=== PATIENT | female | born 1950 | race Caucasian/White ===

== ENCOUNTER 2017-10-14 16:46 | Emergency (ER) | payer MEDICARE, MEDICAID ==
--- NOTE | 2017-10-14 19:05 | ED Physician Chart ---
ED Chief Complaint/HPI - Patient Information Allergies:: Allergies Allergy/AdvReac Type Severity Reaction Status Date / Time No Known Allergies Allergy Verified 10/14/17 16:59 Vitals:: Vital Signs - 8 hr 10/14/1718 10/14/17 16:59 20:09 21:48 Temp 97.8 F 98.3 F HR 67 75 73 RR 18 18 16 BP 143/62 167/81 149/49 O2 Sat % 97 97 99 <Vitaliy Beal - Last Filed: 10/14/17 21:52> - Patient Information Date Seen:: 10/14/17 History of Present Illness:: PT IS A FEMALE WHO HAS ABD AND PEPVIC PAIN FOR INDETERMINANT PERIOD OF TIME. PT IS NONVERBAL AND NON-COMUNITIVE.Can't get my HPICareer view systems Allergies:: Allergies Allergy/AdvReac Type Severity Reaction Status Date / Time No Known Allergies Allergy Verified 10/14/17 16:59 Vitals:: Vital Signs - 8 hr 10/14/17 16:59 Temp 97.8 F HR 67 RR 18 BP 143/62 O2 Sat % 97 <Jeffery Cabrera - Last Filed: 10/15/17 14:59> ED Review of Systems - Review of Systems General/Constitutional: No fever (ROSIs limitedBy the patient's inability to communicate.), Other (PT IS NONCOMINCATIVE AND UNABLE TO RESPONSIVE) <Jeffery Cabrera - Last Filed: 10/15/17 14:59> ED Past Medical History - Past Medical History Past Medical History: DM, Asthma/COPD (HEMIPLEGIA DYSPHAGIA METABOLIC ENCEPHALOPATHY), CVA/TIA, Other Surgical History: PEG/GTube <Vitaliy Beal - Last Filed: 10/14/17 21:52> - Past Medical History Past Medical History: HTN, Thyroid disorder (Hypothyroidism), Other (UTI, Cerebral infarctionWith right-sided weakness, Diabetes type 2Okay) Social History: Non Smoker, No Alcohol <Jeffery Cabrera - Last Filed: 10/15/17 14:59> ED Physical Exam - Physical Examination General/Constitutional: Awake, Well-developed, well-nourished, Alert, No distress, Non-toxic appearing, Ambulatory Head: Atraumatic Eyes: Lids, conjuctiva normal, PERRL, EOMI Other Eyes comments:: SCLERA AN ICTERIC. Skin: No rash, No skin lesions, No ecchymosis, Well hydrated, No lymphadenopathy ENMT: External ears, nose nl, TM canals nl, Nasal exam nl, Lips, teeth, gums nl , Oropharynx nl, Tonsils nl Neck: Nontender, Full ROM w/o pain, No JVD, No nuchal rigidity, No bruit, No mass, No stridor Respiratory: Nl effort/Exclusion, No Wheeze/Rhonchi/Rales Extremities: No tenderness or effusion, Full ROM, normal strength in all extremities, No edema, Normal digits & nails <Jeffery Cabrera - Last Filed: 10/15/17 14:59> ED Labs/Radiology/EKG Results - Lab Results Results: Laboratory Tests 10/14/17 10/14/17 19:23 19:23 WBC 9.9 RBC 4.44 Hgb 11.9 L Hct 35.9 L MCV 80.8 L MCH 26.7 L MCHC Differential 33.0 RDW 13.5 Plt Count 309 MPV 8.4 Neutrophils % 64.6 Lymphocytes % 30.2 Monocytes % 3.4 Eosinophils % 0.9 Basophils % 0.9 Sodium 136 Potassium 3.9 Chloride 99 Carbon Dioxide 30.2 Anion Gap 10.7 BUN 17 Creatinine 0.6 Est GFR ( Amer) > 60.0 Est GFR (Non-Af Amer) > 60.0 BUN/Creatinine Ratio 28.3 Glucose 139 H Calcium 9.8 Total Bilirubin 0.5 AST 8 L ALT 8 Alkaline Phosphatase 74 Total Protein 7.3 Albumin 4.2 Globulin 3.1 Albumin/Globulin Ratio 1.4 <Vitaliy Beal - Last Filed: 10/14/17 21:52> ED Assessment - Assessment General Assessment: CARE OF THIS PATIENT WAS TRANSFERRED TO DR BELA. FOR REVIEW OF LAB STUDIESAND DISPOSITION OF THE PATIENT. <Jeffery Cabrera - Last Filed: 10/15/17 14:59> ED Septic Shock - . Is Septic Shock (SBP<90, OR Lactate>4 mmol\L) present?: No - <6hrs of presentation: Vital Signs: Vital Signs - 8 hr 10/14/17 10/14/17 10/14/17 16:59 20:09 21:48 Temp 97.8 F 98.3 F HR 67 75 73 RR 18 18 16 BP 143/62 167/81 149/49 O2 Sat % 97 97 99 <Vitaliy Beal - Last Filed: 10/14/17 21:52> - <6hrs of presentation: Vital Signs: Vital Signs - 8 hr 10/14/17 16:59 Temp 97.8 F HR 67 RR 18 BP 143/62 O2 Sat % 97 <Jeffery Cabrera - Last Filed: 10/15/17 14:59> ED Reassessment (Disposition) - Reassessment Reassessment Condition:: Improved - Patient Disposition Discharge/Transfer:: [facility] - SNF Condition at Disposition:: Stable <Vitaliy Beal - Last Filed: 10/14/17 21:52> ED Discharge Plan <Vitaliy Beal - Last Filed: 10/14/17 21:52> <Jeffery Cabrera - Last Filed: 10/15/17 14:59> - Patient Disposition Admit/Discharge/Transfer: Discharge/Transfered to SNF Condition at Disposition: Improved Instructions: Urinary Tract Infection, [id number] Additional Instructions: dx uti
[2017-10-14 19:30] LABS: % BASOPHILS 0.9 % (0.0-2.0); % EOSINOPHILS 0.9 % (0.0-5.0); % LYMPHOCYTES 30.2 % (20.0-50.0); % MONOCYTES 3.4 % (2.0-10.0); % NEUTROPHILS 64.6 % (40.0-80.0); BASOPHILE ABSOLUTE 0.1 Th/cumm (0-0.2); EOSINOPHILE ABSOLUTE 0.1 Th/cmm (0.1-0.4); HEMATOCRIT 35.9 % (41.0-60); HEMOGLOBIN 11.9 gm/dL (12-16); MEAN CELL VOLUME 80.8 fl (81-100); MEAN CORPUSCULAR HEMOGLOBIN 26.7 pg (27.0-31.0); MEAN PLATELET VOLUME 8.4 fl; MONOCYTE ABSOLUTE 0.3 Th/cmm (0.3-1.0); NEUTROPHILE ABSOLUTE 6.4 Th/cmm (1.8-8.0); PLATELET COUNT 309 Th/cmm (150-400); RED BLOOD COUNT 4.44 Mil/cmm (3.80-5.20); RED CELL DISTRIBUTION WIDTH 13.5 % (11.5-20.0); WHITE BLOOD COUNT 9.9 Th/cmm (4.8-10.8)
[2017-10-14 19:45] LABS: ALB/GLOB RATIO 1.4 (1.0-1.8); ALBUMIN 4.2 gm/dL (3.7-5.3); ALKALINE PHOSPHATASE 74 U/L (34-104); ANION GAP 10.7 (7.0-16.0); BILIRUBIN,TOTAL 0.5 mg/dL (0.3-1.0); BUN - UREA NITROGEN 17 mg/dL (7-25); CALCIUM SERUM 9.8 mg/dL (8.6-10.3); CARBON DIOXIDE 30.2 mEq/L (21.0-31.0); CHLORIDE 99 mEq/L (98-107); CREATININE - SERUM 0.6 mg/dL (0.6-1.2); GFR AFRICAN-AMERICAN > 60.0 ml/min (>90); GFR NON AFRICAN-AMERICAN > 60.0 ml/min; GLUCOSE 139 mg/dL (70-105); POTASSIUM SERUM 3.9 mEq/L (3.5-5.1); SGOT 8 U/L (13-39); SGPT/ALT 8 U/L (7-52); SODIUM SERUM 136 mEq/L (136-145); TOTAL PROTEIN,SERUM 7.3 gm/dL (6.0-8.3)
[2017-10-14 22:24] LABS: URINE MICROSCOPIC INDICATED? YES; URINE SOURCE RANDOM
[2017-10-14 22:28] LABS: URINE BILIRUBIN NEGATIVE (NEGATIVE); URINE BLOOD TRACE (NEGATIVE); URINE GLUCOSE (UA) NEGATIVE (NEGATIVE); URINE KETONE NEGATIVE (NEGATIVE); URINE LEUKOCYTE ESTERASE LARGE (NEGATIVE); URINE NITRATE NEGATIVE (NEGATIVE); URINE PROTEIN TRACE mg/dL (NEGATIVE); URINE UROBILINOGEN 0.2 E.U./dL (0.2 - 1.0)
[2017-10-14 22:42] LABS: URINE COLOR YELLOW
[2017-10-14 22:43] LABS: URINE CLARITY HAZY (CLEAR); URINE RBC 0-2 /hpf (0-5)
[2017-10-14 22:44] LABS: URINE BACTERIA MANY /hpf (NONE SEEN); URINE EPITHELIAL CELLS MODERATE /lpf (FEW)
[2017-10-14] MEDS ORDERED: Piperacillin Sodium/Tazobact 3.375 gm Vial IV ONE (23:22)
--- NOTE | 2017-10-15 08:36 | Diagnostic Imaging Report ---
CT scan abdomen and pelvis without intravenous contrast HISTORY: Pain Total DLP equals 589 CTDI equals 12.0 Axial sections were obtained from the xiphoid process down to the pubic symphysis. Limited sections through the lower chest demonstrate cardiomegaly. The liver exhibits a normal size with a homogeneous parenchyma. No focal lesions. The spleen appears normal. Gastrostomy tube is seen. No focal abnormality seen within the pancreas. Intraluminal hyperdensity seen in the gallbladder consistent with cholelithiasis. No significant focal renal lesions. No hydronephrosis. The exam of the pelvis demonstrates an enlarged lobular bulbous shaped uterus with calcifications consistent with fibroid changes. An extra uterine mass possibly associated with the ovaries cannot be excluded. Pelvic sonography would provide additional clarification. No abnormal fluid collections. No bowel dilatation. IMPRESSION: 1. Ovoid mass in the left pelvis that may be originating from the uterus and associated with fibroid changes. A left adnexal lesion cannot be excluded. Pelvic sonography would provide additional assessment. 2. Cholelithiasis 3. Gastrostomy tube
== END 2017-10-15 03:00 ==
LOC: ER 16:46
DX: R10.2 Pelvic and perineal pain (principal); R10.9 Unspecified abdominal pain; J45.909 Unspecified asthma, uncomplicated; J44.9 Chronic obstructive pulmonary disease, unspecified; Z86.73 Personal history of transient ischemic attack (TIA), and cerebral infarction without residual deficits; Z93.1 Gastrostomy status
CPT/HCPCS: 99285; 96365; 74176; 36415; 85025; 87086; 81001; 80053; J2543

== ENCOUNTER 2017-11-07 12:37 | Emergency (ER) | payer MEDICARE, MEDICAID ==
--- NOTE | 2017-11-07 13:01 | ED Physician Chart ---
ED Chief Complaint/HPI - Patient Information Date Seen:: 11/07/17 Time Seen:: 12:50 Chief Complaint:: tight ring left ring finger History of Present Illness:: Patient complained of pain of her left ring finger this morning and a tight ring was noted. Allergies:: Allergies Allergy/AdvReac Type Severity Reaction Status Date / Time No Known Allergies Allergy Verified 10/14/17 16:59 Historian:: EMS Review:: Transfer documents Reviewed ED Review of Systems - Review of Systems General/Constitutional: No fever, No chills, No weight loss, No weakness, No diaphoresis, No edema, No loss of appetite Skin: No skin lesions, No rash, No bruising Head: No headache, No light-headedness Eyes: No loss of vision, No pain, No diplopia ENT: No earache, No nasal drainage, No sore throat, No tinnitus Neck: No neck pain, No swelling, No thyromegaly, No stiffness, No mass noted Cardio Vascular: No chest pain, No palpitations, No PND, No orthopnea, No edema Pulmonary: No SOB, No cough, No sputum, No wheezing GI: No nausea, No vomiting, No diarrhea, No pain, No melena, No hematochezia, No constipation, No hematemesis G/U: No dysuria, No frequency, No hematuria Musculoskeletal: No bone or joint pain, No back pain, No muscle pain, Other ( see history and physical) Endocrine: No polyuria, No polydipsia Psychiatric: No prior psych history, No depression, No anxiety, No suicidal ideation Hematopoietic: No bruising, No lymphadenopathy Allergic/Immuno: No urticaria, No angioedema Neurological: No syncope, No focal symptoms, No weakness, No paresthesia, No headache, No seizure, No dizziness, No confusion, No vertigo ED Past Medical History - Past Medical History Past Medical History: HTN, DM, CAD, Asthma/COPD, CVA/TIA, DVT/PE, Thyroid disorder, Other (metabolic encephalopathy; hypothyroidism; hemiplegia and hemiparesis; status post acute respiratory failure) Family History: Other (unavailable) Social History: Care Facility Surgical History: PEG/GTube Medication: Reviewed ED Physical Exam - Physical Examination General/Constitutional: Well-developed, well-nourished, Alert Other Gen/Cons comments:: Nonverbal; fairly confused Head: Atraumatic Other Skin comments:: 2 out of 4 edema left hand and 2 out of 4 pretibial pitting edema ENMT: External ears, nose nl Neck: No nuchal rigidity Respiratory: Nl effort/Exclusion, Clear to Auscultation Cardio Vascular: RRR, No murmur, gallop, rubs GI: No tenderness/rebounding/guarding, No organomegaly Other Extremities comments:: see under skin Other Neuro/Psych comments:: Contraction right-hand ED Assessment - Assessment General Assessment: using ring cutter.silver ring removed from left ring finger by RN. Accu-Chek 196. ED Septic Shock - . Is Septic Shock (SBP<90, OR Lactate>4 mmol\L) present?: No ED Reassessment (Disposition) - Reassessment Reassessment Condition:: Improved - Diagnosis Diagnosis:: tight ring left ring finger; diabetes; hyperglycemia; status post CVA - Aftercare/Follow up Instructions Aftercare/Follow-Up Instructions:: Refer to Discharge Instructions - Patient Disposition Discharge/Transfer:: Group Home Care - SNF Condition at Disposition:: Stable, Improved
== END 2017-11-07 13:30 | disposition home or self-care (01) ==
LOC: ER 12:37
DX: S60.455A Superficial foreign body of left ring finger, initial encounter (principal); E11.65 Type 2 diabetes mellitus with hyperglycemia; I10 Essential (primary) hypertension; J45.909 Unspecified asthma, uncomplicated; Z86.73 Personal history of transient ischemic attack (TIA), and cerebral infarction without residual deficits; Z98.890 Other specified postprocedural states; X58.XXXA Exposure to other specified factors, initial encounter; Y93.89 Activity, other specified; Y92.89 Other specified places as the place of occurrence of the external cause; Y99.8 Other external cause status
CPT/HCPCS: 82948-90; Z7502